=== PATIENT | female | born 1960 | race Two or more races ===

== ENCOUNTER 2025-05-24 10:13 | Emergency (ER) | payer OTHER ==
[~2025-05-24] VITALS: Ht 167.6 cm; Wt 106.6 kg
[~2025-05-24 10:13] MED LIST: DIOVAN HCT 160-1 TAB PO; NORVASC5 MG PO
[2025-05-24] MEDS ORDERED: METFORMIN HCL500 MG (12:06)
[2025-05-24] MEDS ORDERED: TOPROL XL100 M1 PO (12:06)
[2025-05-24] MEDS ORDERED: ARBLI10 MG/1 ML PO (12:06)
[2025-05-24] MEDS ORDERED: GLIMEPIRIDE4 M1 (12:06)
[2025-05-24] MEDS ORDERED: DICY20TA PO (12:07)
[2025-05-24] MEDS ORDERED: HYDROCHLOROTH12.5 MG (12:07)
[2025-05-24] MEDS ORDERED: CIPRO250 MG/5 M PO (12:07)
[2025-05-24] MEDS ORDERED: FAMOTIDINE/PF 20 MG/2 ML VIAL IV PUSH STA (13:35)
[2025-05-24] MEDS ORDERED: SODIUM CHLORIDE 0.45 % 1,000 ML IV STA (13:36)
[2025-05-24 14:24] LABS: BASO % 0.4 % (0.1-1.2); EOS # 0.14 (0.04-0.54); EOS % 1.7 % (0.7-7.0); LYMPH # 2.27 (1.18-3.74); LYMPH % 27.6 % (19.3-53.1); MEAN PLATELET VOLUME 10.60 fl (9.4-12.4); MONO # 0.59 (0.24-0.82); MONO % 7.2 % (4.7-12.5); NEUT # 5.17 (1.56-6.13); NEUT % 62.9 % (34.0-71.1); RED CELL DISTRIBUTION WIDTH 13.2 % (11.6-14.4)
[2025-05-24 14:58] LABS: ALT/SGPT 30.0 U/L (12-78); AST/SGOT 22.0 U/L (15-37); BILIRUBIN TOTAL 0.46 mg/dL (0.3-1.2); BUN CREA RATIO 20.0 (7.0-25.0); CREATININE SERUM 0.9 mg/dL (0.55-1.02); GFR 63.24; GLOBULINA 5.1 G/DL (2.4-3.5); GLUCOSE FASTING 186.0 mg/dL (65-100); OSMOLALITY SERUM 284.0 MOSM/KG (275-295)
[2025-05-24 15:32] LABS: URINE APPEARANCE Clear; URINE BILIRRUBIN Negative (NEGATIVE); URINE BLOOD Negative; URINE COLOR Yellow; URINE GLUCOSE Negative (NEGATIVE); URINE KETONE Trace (NEGATIVE); URINE LEUKOCYTE Negative; URINE NITRATE Negative; URINE PROTEIN Negative (NEGATIVE); URINE UROBILINOGEN 0.2 E.U./dl
[2025-05-24 15:37] LABS: URINE BACTERIA 323.7 uL (0.0-1933); URINE EPITHELIAL CELLS 6.8 uL (0.0-38.8); URINE WBC 6.2 uL (0.0-23.2)
[2025-05-24 16:06] LABS: URINE CAST 0.99 uL (0.0-1.40); URINE RBC 1.4 uL (0.0-20.8)
[2025-05-24] MEDS ORDERED: IBU600 MG PO (19:28)
[2025-05-24] MEDS ORDERED: METRONIDAZOLE500 MG PO (19:28)
[2025-05-24] MEDS ORDERED: PEPCID AC20 MG PO (19:28)
[2025-05-24] MEDS ORDERED: CIPRO500 MG PO (19:28)
[2025-05-24] MEDS ORDERED: KETOROLAC TROMETHAMINE 30 MG VIAL IV ONE (19:30)
== END 2025-05-24 20:05 | disposition home or self-care (01) ==
LOC: ER 10:13
PROVIDERS: General Practice
DX: R10.13 Epigastric pain (principal); K57.30 Diverticulosis of large intestine without perforation or abscess without bleeding; E11.9 Type 2 diabetes mellitus without complications; Z79.84 Long term (current) use of oral hypoglycemic drugs; I10 Essential (primary) hypertension